=== PATIENT | male | born 1945 | race Caucasian/White ===

== ENCOUNTER 2021-07-02 11:50 | Inpatient (IN) ==
[2021-07-02] MEDS ORDERED: NS 0.9% 1000 ml BAG 1,000 ML IV ONE (14:30)
[2021-07-02 15:19] LABS: ABS Lymphocytes 1.4 10^3/ul (1.0-4.8); ABS Monocytes 0.6 10^3/ul (0-0.8); Eosinophil % 0.3 %; Hematocrit 41 % (42-52); Lymphocyte % 20.1 %; Mean Corpuscular HGB Conc 34 g/dL (31-36); Mean Corpuscular Hemoglobin 31 pg (27-31); Mean Corpuscular Volume 90 fL (80-94); Mean Platelet Volume 7.4 fL (7.4-10.4); Platelet Count 202 10^3/uL (150-450); Red Blood Count 4.54 10^6 /uL (4.18-5.48); Red Cell Distribution Width 13 % (10-15); White Blood Count 7.1 10^3/uL (3.5-10.8)
[2021-07-02 15:29] LABS: Rapid COVID-19 Molecular Undetected (Undetected)
[2021-07-02 15:31] LABS: Influenza A Molecular Negative (Negative); Influenza B Molecular Negative (Negative)
[2021-07-02 15:35] LABS: Activated Partial Thrombo Time 26.5 seconds (26.0-38.0); INR 1.07 (0.86-1.15)
[2021-07-02 15:41] LABS: Troponin I 0.03 ng/mL (<0.03)
[2021-07-02 16:28] LABS: ALT 39 U/L (7-52); AST 48 U/L (13-39); Albumin 3.8 g/dL (3.2-5.2); Alkaline Phosphatase 123 U/L (35-149); Anion Gap 9 mmol/L (2-11); Blood Urea Nitrogen 22 mg/dL (6-24); CO2 Carbon Dioxide 23 mmol/L (22-32); Calcium 9.5 mg/dL (8.6-10.3); Chloride 98 mmol/L (101-111); Globulin 3.8 g/dL (2-4); Glucose 127 mg/dL (70-100); Magnesium 2.2 mg/dL (1.9-2.7); Potassium 3.9 mmol/L (3.5-5.0); Sodium 130 mmol/L (135-145); Total Protein 7.6 g/dL (6.4-8.9)
[2021-07-02] MEDS ORDERED: Iohexol 350 (CONTRAST) 500 ML MDV IV ONE (16:50)
[2021-07-02 18:36] LABS: Urine Appearance Cloudy; Urine Bilirubin Negative (Negative); Urine Blood 2+ (Negative); Urine Color Amber; Urine Glucose Negative (Negative); Urine Ketones Negative (Negative); Urine Nitrite Negative (Negative); Urine Protein 2+(100 mg/dL) (Negative); Urine Specific Gravity 1.028 (1.002-1.030); Urine Urobilinogen Negative (Negative)
[2021-07-02 18:42] LABS: Urine Bacteria Absent (Absent); Urine Granular Casts Present (Absent); Urine Red Blood Cell 1+(3-5/hpf) (Absent); Urine White Blood Cell Trace(0-5/hpf) (Absent)
[2021-07-02] MEDS ORDERED: cefTRIAXone 1 gm/50 mL NS BAG 1 GM/50 ML BAG IV ONE (19:05)
[2021-07-02] MEDS ORDERED: Azithromycin 500 mg/250 ml NS 500 MG/250 ML BAG IVPB ONE (19:05)
[2021-07-02] MEDS ORDERED: Heparin 5000 UNITS/ML 1 mL VIAL IV SCH (20:00)
[2021-07-02 22:15] LABS: C Reactive Protein 232.43 mg/L (<8.01)
[2021-07-02 22:18] LABS: ABS Lymphocytes 1.6 10^3/ul (1.0-4.8); ABS Monocytes 0.6 10^3/ul (0-0.8); ABS Neutrophils 5.8 10^3/ul (1.5-7.7); Eosinophil % 0.2 %; Hematocrit 40 % (42-52); Hemoglobin 13.3 g/dL (14.0-18.0); Lymphocyte % 20.2 %; Mean Corpuscular HGB Conc 34 g/dL (31-36); Mean Corpuscular Hemoglobin 31 pg (27-31); Mean Corpuscular Volume 91 fL (80-94); Mean Platelet Volume 7.8 fL (7.4-10.4); Platelet Count 217 10^3/uL (150-450); Red Blood Count 4.36 10^6 /uL (4.18-5.48); Red Cell Distribution Width 13 % (10-15)
[2021-07-02 22:37] LABS: Blood Urea Nitrogen 19 mg/dL (6-24)
[2021-07-02] MEDS: Heparin DRIP 25,000 UNITS BAG 25,000 UNITS/500 ML BAG IV SCH (22:56)
[2021-07-02 23:15] LABS: Troponin I 0.05 ng/mL (<0.03)
[2021-07-03 06:29] LABS: ABS Lymphocytes 1.7 10^3/ul (1.0-4.8); ABS Monocytes 0.6 10^3/ul (0-0.8); ABS Neutrophils 3.8 10^3/ul (1.5-7.7); Eosinophil % 0.4 %; Hematocrit 34 % (42-52); Hemoglobin 11.7 g/dL (14.0-18.0); Lymphocyte % 27.5 %; Mean Corpuscular HGB Conc 35 g/dL (31-36); Mean Corpuscular Hemoglobin 31 pg (27-31); Mean Corpuscular Volume 90 fL (80-94); Mean Platelet Volume 7.8 fL (7.4-10.4); Platelet Count 178 10^3/uL (150-450); Red Blood Count 3.79 10^6 /uL (4.18-5.48); Red Cell Distribution Width 13 % (10-15); White Blood Count 6.1 10^3/uL (3.5-10.8)
[2021-07-03 06:44] LABS: Calcium 8.8 mg/dL (8.6-10.3); Potassium 3.7 mmol/L (3.5-5.0)
[2021-07-03] MEDS ORDERED: Lactated Ringers 1000 ml BAG 1,000 ML IV ONE (11:20)
[2021-07-03] MEDS: Heparin DRIP 25,000 UNITS BAG 25,000 UNITS/500 ML BAG IV SCH (17:45)
[2021-07-03] MEDS: Enoxaparin 80 MG/0.8 ML SYR SUBCUT SCH (19:50)
[2021-07-03] MEDS ORDERED: Enoxaparin 80 MG/0.8 ML SYR SUBCUT SCH (21:00)
[2021-07-03] MEDS: cefTRIAXone 1 gm/50 mL NS BAG 1 GM/50 ML BAG IVPB SCH (22:17)
[2021-07-03] MEDS: Azithromycin 500 mg/250 ml NS 500 MG/250 ML BAG IVPB SCH (22:17)
[2021-07-04 05:43] LABS: ABS Eosinophils 0.1 10^3/ul (0-0.6); ABS Lymphocytes 1.4 10^3/ul (1.0-4.8); ABS Monocytes 0.5 10^3/ul (0-0.8); ABS Neutrophils 3.8 10^3/ul (1.5-7.7); Eosinophil % 1.8 %; Hematocrit 33 % (42-52); Hemoglobin 11.4 g/dL (14.0-18.0); Lymphocyte % 24.7 %; Mean Corpuscular HGB Conc 34 g/dL (31-36); Mean Corpuscular Hemoglobin 31 pg (27-31); Mean Corpuscular Volume 89 fL (80-94); Mean Platelet Volume 7.5 fL (7.4-10.4); Platelet Count 180 10^3/uL (150-450); Red Blood Count 3.72 10^6 /uL (4.18-5.48); Red Cell Distribution Width 13 % (10-15); White Blood Count 5.8 10^3/uL (3.5-10.8)
[2021-07-04 06:01] LABS: Calcium 8.8 mg/dL (8.6-10.3); Potassium 3.9 mmol/L (3.5-5.0)
[2021-07-04] MEDS ORDERED: Potassium Chlor 20 meq TAB.ER PO ONE (07:39)
[2021-07-04] MEDS: Enoxaparin 80 MG/0.8 ML SYR SUBCUT SCH ×2 (07:59→21:20)
[2021-07-04] MEDS: Nystatin TOP POWDER 15 GM BTL TOPICAL SCH ×3 (09:54→21:20)
[2021-07-04] MEDS: cefTRIAXone 1 gm/50 mL NS BAG 1 GM/50 ML BAG IVPB SCH (21:20)
[2021-07-04] MEDS: Azithromycin 500 mg/250 ml NS 500 MG/250 ML BAG IVPB SCH (21:20)
[2021-07-05 05:56] LABS: Calcium 8.9 mg/dL (8.6-10.3); Magnesium 2.1 mg/dL (1.9-2.7); Potassium 4.2 mmol/L (3.5-5.0)
[2021-07-05] MEDS: Enoxaparin 80 MG/0.8 ML SYR SUBCUT SCH (07:18)
[2021-07-05] MEDS: Nystatin TOP POWDER 15 GM BTL TOPICAL SCH ×2 (07:18→13:17)
[2021-07-05 15:39] VITALS: BP 105/65
== END 2021-07-05 17:30 | disposition home or self-care (01) | DRG 175 ==
LOC: ED 11:50 → SUATTDRO 22:20 → MED 22:20 → MEDTELE 07-03 21:41
PROVIDERS: ADMIT Internal Medicine; ATTEND Student in an Organized Health Care Education/Training Program

== ENCOUNTER 2022-07-03 12:45 | Observation (INO) ==
[~2022-07-03 12:45] MED LIST: Buffered Lidocaine 1% SYRIN 1 ml INTRADERM ONE; Lactated Ringers 1000 ml BAG 1,000 ML IV SCH
[2022-07-03] MEDS ORDERED: Clindamycin 900 MG/D5W BAG 900 MG/50 ML BAG IVPB ONE (12:59)
[2022-07-03] MEDS ORDERED: Gelfoam Sponge SIZE 100 SPONGE ONE (14:25)
[2022-07-03] MEDS ORDERED: Thrombin 5,000 UNITS 1 APPLIC KIT - topical use - TOPICAL ONE (14:25)
[2022-07-03] MEDS ORDERED: Lidocaine 2% w EPI 1:100,000 20 ML MDV VIAL ONE (14:25)
[2022-07-03] MEDS ORDERED: ceFAZolin VIAL VIAL ONE (14:25)
[2022-07-03] MEDS ORDERED: Rocuronium 50 mg VIAL 10 mg/ml 5 ml VIAL (50 mg) ONE (14:34)
[2022-07-03] MEDS ORDERED: Dexamethasone IV 4 MG/ML VIAL 1 ml VIAL ONE (14:36)
[2022-07-03] MEDS ORDERED: Lidocaine 2% PF 5 ML VIAL ONE (14:36)
[2022-07-03] MEDS ORDERED: Ondansetron 4 mg VIAL 2 MG/ML 2 ml VIAL ONE (14:36)
[2022-07-03] MEDS ORDERED: fentaNYL 100 mcg/2 ml 50 MCG/ML VIAL ONE (14:36)
[2022-07-03] MEDS ORDERED: Propofol 10 MG/ML 20 ML BTL ONE (14:36)
[2022-07-03] MEDS ORDERED: Phenylephrine 40 mcg/mL 10mL (400mcg) SYRINGE ONE (15:14)
[2022-07-03] MEDS ORDERED: Acetaminophen IV 1 GM/100ML 1,000 MG/100 ML BAG IV PRN (15:23)
[2022-07-03] MEDS ORDERED: fentaNYL 100 mcg/2 ml 50 MCG/ML VIAL IV PRN (15:23)
[2022-07-03] MEDS ORDERED: HYDROmorphone 1 MG/1 ML SYRINGE IV PRN (15:23)
[2022-07-03] MEDS ORDERED: Ondansetron 4 mg VIAL 2 MG/ML 2 ml VIAL IV PRN ×2 (15:23→16:40)
[2022-07-03] MEDS ORDERED: Naloxone 0.4 mg VIAL 0.4 mg/ml 1 ml VIAL IV PRN (15:23)
[2022-07-03] MEDS ORDERED: Sugammadex 500 MG/5 ML 5 ml VIAL IV PUSH ONE (16:29)
[2022-07-03] MEDS ORDERED: HYDROcodone/ACETAMIN 5/325 mg TAB PO PRN (16:40)
[2022-07-03] MEDS ORDERED: Morphine 2 MG/ML SYRINGE IV PRN (16:46)
[2022-07-03] MEDS ORDERED: Lactated Ringers 1000 ml BAG 1,000 ML IV SCH (17:00)
[2022-07-05 07:52] VITALS: BP 132/67
== END 2022-07-05 09:28 | disposition home or self-care (01) ==
LOC: OR 12:45 → SSU 12:45
PROVIDERS: ADMIT Neurological Surgery; ATTEND Neurological Surgery